=== PATIENT | female | born 1965 | race Caucasian/White ===

== ENCOUNTER → 2021-04-25 | Outpatient (REF) | LOC: M PLAIMG 10:16 | PROVIDERS: ATTEND Internal Medicine | DX: M25.551 Pain in right hip (principal) ==

== ENCOUNTER → 2021-11-11 | Outpatient (CLI) | payer OTHER ==
[~2021-11-11] MED LIST: ALBU2.5V10 INH; COLA100C5 PO; EPIN0.154 IJ; ESTR0.1C5 VA; FLUO40CA PO; GLIP10TA18 PO; LEVOTAB10 PO; MEPO100A SQ; MIRA0.254 PO; MUCI1TAB18 PO; PANT40TA29 PO; TREL1AER IN; TRUL10IN SC
== END ==
LOC: M LABSMTC 11:10
PROVIDERS: ATTEND Anesthesiology
DX: Z20.828 Contact with and (suspected) exposure to other viral communicable diseases (principal); Z11.59 Encounter for screening for other viral diseases

== ENCOUNTER 2021-11-15 09:59 | Day surgery (SDC) | payer OTHER ==
[~2021-11-15] VITALS: Ht 157.5 cm; Wt 94.8 kg
[~2021-11-15 09:59] MED LIST changes: +NS 1,000 ML IV ONE
[2021-11-15] MEDS ORDERED: LIDOCAINE 2% 100MG/5ML SDV (FOR ANES.) As Ordered ONE (12:19)
[2021-11-15] MEDS ORDERED: propofoL 200 MG/20 ML VIAL As Ordered ONE (12:19)
[2021-11-15] MEDS ORDERED: ONDANSETRON 4MG 2ML VIAL As Ordered ONE (12:19)
[2021-11-15 13:04] VITALS: BP 126/66
== END 2021-11-15 13:45 | disposition home or self-care (01) ==
LOC: M OPP 09:59
PROVIDERS: ATTEND Internal Medicine Gastroenterology
DX: K22.89 Other specified disease of esophagus (principal); K29.70 Gastritis, unspecified, without bleeding; K30 Functional dyspepsia; E11.9 Type 2 diabetes mellitus without complications; K75.81 Nonalcoholic steatohepatitis (NASH); J44.9 Chronic obstructive pulmonary disease, unspecified; F32.9 Major depressive disorder, single episode, unspecified; Z79.51 Long term (current) use of inhaled steroids; Z79.84 Long term (current) use of oral hypoglycemic drugs; Z79.899 Other long term (current) drug therapy; Z88.0 Allergy status to penicillin; Z88.6 Allergy status to analgesic agent; Z91.012 Allergy to eggs
CPT/HCPCS: 43239; 88305; J2405